=== PATIENT | male | born 1970 | race Caucasian/White ===

== ENCOUNTER 2018-12-21 01:28 | Emergency (ER) | payer MEDICAID, OTHER ==
[~2018-12-21] VITALS: Wt 93.3 kg
[2018-12-21] MEDS ORDERED: PROM6.2515 PO (06:25)
[2018-12-21] MEDS ORDERED: IBUP800T48 PO (06:25)
[2018-12-21] MEDS ORDERED: AZIT250T PO (06:25)
[2018-12-21] MEDS ORDERED: ACET325T33 PO (06:25)
[2018-12-21] MEDS ORDERED: BENZ-6 PO (06:25)
[2018-12-21 06:41] VITALS: BP 117/67; PULSE 83; RESP 18
--- NOTE | 2018-12-21 07:40 | ERD ---
ER Documentation Chief Complaint Chief Complaint DIARRHEA, VOMITING X'S 10 DAYS HPI 48-year-old male presenting with cough and runny nose with generalized body aches for the last week. He has had a fever for the last few days has not taken medications today. Positive sick contacts at home. Denies abdominal pain. Medical history is hypercholesterolemia. NKDA. Surgical history denies. Up-to-date on vaccinations. Social history denies ROS All systems reviewed and are negative except as per history of present illness. Medications Home Meds Active Scripts Acetaminophen* (Tylenol*) 325 Mg Tablet, 2 TAB PO Q6 PRN for PAIN AND OR ELEVATED TEMP, #20 TAB Prov:ELLEN NATION PA-C 12/21/18 Ibuprofen* (Motrin*) 800 Mg Tab, 800 MG PO Q6, #30 TAB Prov:ELLEN NATION PA-C 12/21/18 Promethazine Hcl* (Promethazine Hcl* Syrup) 6.25 Mg/5 Ml Syrup, 6.25 MG PO Q6H PRN for COUGH, #100 ML Prov:ELLEN NATION PA-C 12/21/18 Benzonatate* (Tessalon Perle*) 100 Mg Capsule, 100 MG PO Q8H PRN for COUGH, #30 CAP Prov:ELLEN NATION PA-C 12/21/18 Azithromycin* (Zithromax*) 250 Mg Tablet, 250 MG PO .ZPACK DIRECTED, #6 TAB TAKE 500 MG (2 TABS) THE FIRST DAY THEN 250 MG (1 TAB) DAYS 2-5 Prov:ELLEN NATION PA-C 12/21/18 Allergies Allergies: Coded Allergies: No Known Allergy (Unverified , 12/21/18) PMhx/Soc History of Surgery: No Anesthesia Reaction: No Hx Neurological Disorder: No Hx Respiratory Disorders: No Hx Cardiac Disorders: Yes (hypercholesteremia) Hx Psychiatric Problems: No Hx Miscellaneous Medical Probl: No Hx Alcohol Use: No Hx Substance Use: No Hx Tobacco Use: No FmHx Family History: No diabetes, No coronary disease, No other Physical Exam Vitals Vital Signs Date Temp Pulse Resp B/P (MAP) Pulse Ox O2 O2 Flow FiO2 Time Delivery Rate 12/21/18 98.5 83 18 117/67 96 Room Air 06:41 (84) 12/21/18 100.2 95 18 128/72 95 01:35 (90) Physical Exam GENERAL: The patient is well-appearing, well-nourished, in no acute distress HEENT: Atraumatic. Conjunctivae are pink. Pupils equal, round, and reactive to light. There is no scleral icterus. Tympanic membranes clear bilaterally. Oropharynx clear. NECK: C-spine is soft and supple. There is no meningismus. There is no cervical lymphadenopathy. CHEST: Clear to auscultation bilaterally. There are no rales, wheezes or rhonchi. HEART: Regular rate and rhythm. No murmurs, clicks, rubs or gallops. ABDOMEN:Soft, nontender and nondistended. Good bowel sounds. No rebound or guarding. No gross peritonitis. No gross organomegaly or masses. Procedures/MDM MDM: 48-year-old male presenting with runny nose and cough. Patient's abdominal exam is non-concerning. I have low suspicion for acute abdominal emergency. Patient likely has viral syndrome. I will treat with antibiotics given patient has some coarse breath sounds however low suspicion for respiratory distress or hypoxia. I have low suspicion for sepsis. All questions answered at discharge. Patient is discharged with strict ER precautions. Departure Diagnosis: Primary Impression: URI (upper respiratory infection) Condition: Stable Patient Instructions: Cough, Chronic, Uncertain Cause, (Adult) Referrals: COMM[facility]ITY CLINICS YOU HAVE RECEIVED A MEDICAL SCREENING EXAM AND THE RESULTS INDICATE THAT YOU DO NOT HAVE A CONDITION THAT REQUIRES URGENT TREATMENT IN THE EMERGENCY DEPARTMENT. FURTHER EVALUATION AND TREATMENT OF YOUR CONDITION CAN WAIT UNTIL YOU ARE SEEN IN YOUR DOCTORS OFFICE WITHIN THE NEXT 1-2 DAYS. IT IS YOUR RESPONSIBILITY TO MAKE AN APPOINTMENT FOR FOLOW-UP CARE. IF YOU HAVE A PRIMARY DOCTOR --you should call your primary doctor and schedule an appointment IF YOU DO NOT HAVE A PRIMARY DOCTOR YOU CAN CALL OUR PHYSICIAN REFERRAL HOTLINE AT IF YOU CAN NOT AFFORD TO SEE A PHYSICIAN YOU CAN CHOSE FROM THE FOLLOWING [facility] [address] [facility] [address] [facility]. [facility] [address] [facility]. [facility] [address] [facility]. [facility] [address]. [facility] [address] Additional Instructions: FOLLOW UP WITH YOUR PRIMARY CARE PHYSICIAN TOMORROW.Return to this facility if you are not improving as expected. ELLEN NATION PA-C Dec 21, 2018 07:40
== END 2018-12-21 06:48 | disposition home or self-care (01) ==
LOC: FTE 01:28
DX: J06.9 Acute upper respiratory infection, unspecified (principal)
CPT/HCPCS: 99283